=== PATIENT | male | born 1945 | race Caucasian/White ===

== ENCOUNTER → 2019-04-23 | Outpatient (CLI) | payer MEDICARE, OTHER ==
[~2019-04-23] MED LIST: IOHEXOL 240 MG/ML 50ML VIAL. ONE; IOHEXOL 240 MG/ML 50ML VIAL. PO ONE
--- NOTE | 2019-04-23 14:40 | RAD ---
EXAM: CT Abdomen and Pelvis without IV contrast INDICATION: Abdomen pain TECHNIQUE: Multi-detector row CT images were acquired from the lung bases through the abdomen and pelvis without the use of IV contrast. Sagittal and coronal images were acquired from the transaxial data. All CT scans performed at this facility utilize dose optimization techniques as appropriate to the exam, including the following: Automated exposure control and adjustment of the mA and/or KV according to patient size (this includes techniques or standardized protocols for targeted exams where dose is indication/reason for exam). IV CONTRAST: Not administered ORAL CONTRAST: Administered COMPARISON: None FINDINGS: LOWER CHEST: Respiratory motion artifact degrades detail. There is a 7 mm nodule in the right middle lobe (image 2 of 182 on series 2). Multivessel coronary calcifications. LIVER: Scattered calcifications in the right hepatic lobe. BILIARY SYSTEM: Gallbladder is unremarkable. Bile ducts are not dilated. PANCREAS: Unremarkable SPLEEN: Unremarkable ADRENALS: Unremarkable KIDNEYS & URETERS: Unremarkable BLADDER: Unremarkable REPRODUCTIVE ORGANS: Surgical clips in the bilateral spermatic cords suggestive of previous mastectomy are noted. GASTROINTESTINAL: No findings of bowel obstruction, perforation or obvious acute inflammation. There is mild wall thickening in the sigmoid colon where multiple diverticuli are present. Significant pericolonic soft tissue stranding is however not readily apparent. The appendix is not well seen. There are no findings however of acute appendicitis.. MESENTERY/PERITONEUM/RETROPERITONEUM: Trace pelvic free fluid. VASCULAR: Scattered atherosclerotic calcifications. LYMPH NODES: No adenopathy OSSEOUS & SOFT TISSUES: Mild generalized osteopenia and degenerative changes in the lumbar spine. IMPRESSION: Diverticulosis with sigmoid colonic wall thickening and trace pelvic free fluid could represent the earliest manifestations of acute on chronic diverticulitis. Correlate clinically. Otherwise no acute findings in the abdomen or pelvis on noncontrast CT Electronically signed by: Tani Gastelum MD (04/23/2019 2:37 PM) [facility]
== END | disposition home or self-care (01) ==
LOC: CT 12:53
PROVIDERS: ATTEND Family Medicine
DX: K57.90 Diverticulosis of intestine, part unspecified, without perforation or abscess without bleeding (principal); K50.80 Crohn's disease of both small and large intestine without complications; D62 Acute posthemorrhagic anemia; R10.84 Generalized abdominal pain; M85.88 Other specified disorders of bone density and structure, other site; M47.816 Spondylosis without myelopathy or radiculopathy, lumbar region
CPT/HCPCS: 74176; Q9966